=== PATIENT | female | born 1945 | race Caucasian/White ===

== ENCOUNTER → 2016-06-30 | Outpatient (CLI) | payer MEDICARE, OTHER ==
[2015-10-23 14:45] VITALS: BP 167/63
[~2016-06-30] MED LIST: ALBU2.5V5 NEB; ASPI81TA44 PO; ATORVASTATIN CA80 MG PO; BUDE10.2 IH; BYSTOLIC5 MG PO; CALC600T4 PO; CETI10CA PO; CITA10TA4 PO; CRAN500C6 PO; CYCL10TA2 PO; DEXL30CA PO; DEXL60CA PO; DOCU100C PO; FESO4TAB PO; FESO8TAB PO; INUL2.5T PO; MECL-51 PO; METO25TA4 PO; MULT-18 PO; NAPR500T8 PO; OMEG1CAP16 PO; PANT40TA5 PO; POLY17PO5 PO; PROVENTIL HFA6.7 GM IH; RANI300C PO; SOLI5TAB PO; SUCR1TAB29 PO; TRAM50TA PO
--- NOTE | 2016-06-30 14:11 | RAD ---
PROCEDURE MRI brain without contrast. HISTORY Dizziness, imbalance. TECHNIQUE Sagittal T1, axial T1, axial T2, axial FLAIR, axial T2 gradient, coronal T2, and diffusion imaging with ADC map were performed. COMPARISON None. FINDINGS There is prominence of the ventricles and sulci, has a slight parietal predominance. There are FLAIR hyperintensities in the supratentorial white matter, nonspecific but most suggestive of mild small vessel ischemic disease. There is no acute intracranial hemorrhage or extra-axial fluid collection. There is no mass effect or midline shift. There is no restricted diffusion to suggest an acute infarct. The cervicomedullary junction is unremarkable. The pituitary and suprasellar region are unremarkable. The intracranial flow voids are preserved. There is minimal ethmoid and right maxillary mucosal thickening. IMPRESSION 1. Brain parenchymal volume loss, with a slight parietal predominance. 2. Mild probable small-vessel ischemic disease. Electronically signed by: Rico Segovia MD (Jun 30, 2016 14:10:25)
== END | disposition home or self-care (01) ==
LOC: MRI 12:32
PROVIDERS: ATTEND Family Medicine
DX: R26.89 Other abnormalities of gait and mobility (principal); R42 Dizziness and giddiness; H81.10 Benign paroxysmal vertigo, unspecified ear; R27.0 Ataxia, unspecified
CPT/HCPCS: 70551

== ENCOUNTER → 2019-06-28 | Day surgery (SDC) | payer MEDICARE ==
[~2019-06-28] MED LIST changes: -ASPI81TA44 PO; +ASPI81TA59 PO; -DEXL60CA PO; +DEXL60CA2 PO; +DOCU-150 PO; -DOCU100C PO; +HYDROmorphone 2 MG/ML VIAL IV PRN; +IV RINGERS,LACTATED 1000ML 1,000 ML IV SCH; +MORPHINE SULFATE 2 MG/ML VIAL. IV PRN; -OMEG1CAP16 PO; +OMEG1CAP27 PO; +ONDANSETRON PF 4 MG/2 ML VIAL. IV PRN; -PANT40TA5 PO; +PANT40TA77 PO; +POLY17PO29 PO; -POLY17PO5 PO; +PROCHLORPERAZINE 10 MG/2 ML VIAL. IV PRN; +PROPOFOL 20 ML IV ONE; -SOLI5TAB PO; +SOLI5TAB2 PO; -SUCR1TAB29 PO; +SUCR1TAB35 PO; +fentaNYL PF VIAL 100 MCG/2 ML VIAL IV PRN
--- NOTE | 2019-06-28 13:23 | CONS ---
DATE OF CONSULTATION: 06/28/2019 UPDATED HISTORY AND PHYSICAL REFERRING PHYSICIAN: Alyssa Slaughter MD REASON FOR CONSULTATION: Epigastric pain, gastroparesis. HISTORY OF PRESENT ILLNESS: A 73-year-old female whose past medical history is significant for colonic polyps, rheumatic heart disease, GERD, hyperlipidemia, gastroparesis, insulin-dependent diabetes mellitus, is seen in further evaluation of epigastric pain associated with belching, bloating and nausea, worsened with eating. Prior cholecystectomy is noted, delayed gastric emptying is encountered. Erythromycin has been taken without improvement. An EGD is recommended to assess for potential gastric outlet obstruction and/or additional pathologies. PAST MEDICAL HISTORY: Hyperlipidemia, diabetes, GERD, colonic polyps. ALLERGIES: None. MEDICATIONS: Include albuterol, aspirin, atorvastatin, budesonide, calcium, cyclobenzaprine, insulin, meclizine, metoprolol, pantoprazole, polyethylene glycol, ranitidine and VESIcare. FAMILY AND SOCIAL HISTORY: She is a social drinker, nonsmoker. PAST SURGICAL HISTORY: Status post cholecystectomy. REVIEW OF SYSTEMS: Per records. PHYSICAL EXAMINATION: GENERAL: Reveals a well-nourished, well-developed female who is alert, cooperative, in mild distress. VITAL SIGNS: Temperature is 97.6, pulse 93, respiratory rate 16. HEENT: Normocephalic, atraumatic head. Pupils and extraocular muscles are not tested. Sclerae anicteric. NECK: Supple. LUNGS: Clear. CARDIOVASCULAR: Reveals an S1, S2 without S3, S4 or appreciable murmur. ABDOMEN: Reveals a soft abdomen, normal bowel sounds, without appreciable hepatosplenomegaly. Epigastric tenderness. EXTREMITIES: No cyanosis, clubbing or edema. IMPRESSION: Abdominal pain, status post cholecystectomy, gastroparesis. EGD to assess for celiac disease or ulcers, malignancy or outlet obstruction. Risks and benefits have been discussed with the patient including risk of hemorrhage and perforation and is willing to proceed. CHRIS FORDE MD DR: MORTEZA/viktor JOB#: [id number] / [id number]
[2019-06-28 13:39] VITALS: BP 144/67
--- NOTE | 2019-07-02 13:07 | PATHOLOGY ---
[facility] Accession Number: [id number] . 01 Material submitted: . stomach - GASTRIC ANTRUM BX . 01 Clinical history: . History of ulcers; ulcers . 02 Diagnosis: Stomach, antrum, biopsy: - Chronic superficial gastritis, mild to moderate. - Focal ulceration with acute ulcer exudate. - No evidence of Helicobacter pylori on immunoperoxidase stain. (SKM:pit 07/02/2019) QTP 07/02/2019 1023 Local . 02 Electronically signed: . Gerber Polk MD, Pathologist NPI- [id number] . 01 Gross description: . The specimen is received in formalin, labeled "Ariana Alonso, gastric antrum biopsy". Received are three segments of pale sue soft tissue measuring 0.3 cm each in maximum dimensions. The specimen is submitted entirely in cassette A1. (CAA; 06/29/2019) QAC/QAC 06/29/2019 1101 Local . 02 Pathologist provided ICD-10: K29.50, K25.9 . 02 CPT . 636586, [id number] Specimen Comment: A courtesy copy of this report has been sent to [phone], [phone] Specimen Comment: [id number] Specimen Comment: Report sent to / DR BETHEA Performed at: 01 [facility] [address], [place] [id number] MD Will Palacio MD Phone: [phone] Performed at: 02 [facility] [address] [place], [place] [id number] MD Fabian Schmidt MD Phone: [phone]
== END | disposition home or self-care (01) ==
LOC: ENDOS 11:38
PROVIDERS: ATTEND Internal Medicine Gastroenterology
DX: K25.7 Chronic gastric ulcer without hemorrhage or perforation (principal); K29.50 Unspecified chronic gastritis without bleeding; K31.89 Other diseases of stomach and duodenum; K21.9 Gastro-esophageal reflux disease without esophagitis; E78.5 Hyperlipidemia, unspecified; E11.9 Type 2 diabetes mellitus without complications; I10 Essential (primary) hypertension; I09.89 Other specified rheumatic heart diseases; Z79.4 Long term (current) use of insulin; Z90.49 Acquired absence of other specified parts of digestive tract; Z86.010 Personal history of colon polyps; Z98.890 Other specified postprocedural states; Z79.82 Long term (current) use of aspirin; Z79.899 Other long term (current) drug therapy
CPT/HCPCS: 43239; 88305; 88342; J2704